=== PATIENT | male | born 2000 | race Two or more races ===

== ENCOUNTER 2021-04-03 15:32 | Emergency (ER) | payer SELFPAY ==
[~2021-04-03] VITALS: Ht 177.8 cm; Wt 75.0 kg
[2021-04-03] MEDS ORDERED: CYCL5TAB PO (16:36)
[2021-04-03] MEDS ORDERED: IBUP-1007 PO (16:36)
--- NOTE | 2021-04-03 16:43 | PHYS DOC ---
General Adult EDM: Chief Complaint: EARACHE/EAR PAIN HPI: HPI: Patient is a 21 year old male who presents with bilateral TMJ return he opens and closes his mouth. He states it is painful when he opens and closes his mouth and he feels a popping. He states is been going on for 3 months. He denies grinding his teeth, eating on ice, frequently chewing gum, dental pain, fever, throat pain, ear pain, loss of hearing, nausea, vomiting, abdominal pain, chest pain, shortness of breath, cough. An conference interpreter is used as he is [place]ian-speaking. Rates his pain around a 5 out of 10. Review of Systems: Review of Systems: Constitutional: Denies fever or chills. [] Eyes: Denies change in visual acuity. [] HENT: Denies nasal congestion or sore throat. + Bilateral TMJ. [] Respiratory: Denies cough or shortness of breath. [] Cardiovascular: Denies chest pain or edema. [] GI: Denies abdominal pain, nausea, vomiting, bloody stools or diarrhea. [] : Denies dysuria. [] Musculoskeletal: Denies back pain or joint pain. [] Integument: Denies rash. [] Neurologic: Denies headache, focal weakness or sensory changes. [] Endocrine: Denies polyuria or polydipsia. [] Lymphatic: Denies swollen glands. [] Psychiatric: Denies depression or anxiety. [] Heart Score: C/O Chest Pain: No Physical Exam: PE: Constitutional: Well developed, well nourished, no acute distress, non-toxic appearance. [] HENT: Normocephalic, atraumatic, bilateral external ears normal, oropharynx moist, no oral exudates, nose normal. Popping bilaterally at the TMJ. No tenderness with palpation. Patient can open his mouth. [] Eyes: PERRLA, EOMI, conjunctiva normal, no discharge. [] Neck: Normal range of motion, no tenderness, supple, no stridor. [] Cardiovascular:Heart rate regular rhythm, no murmur [] Lungs & Thorax: Bilateral breath sounds clear to auscultation [] Abdomen: Bowel sounds normal, soft, no tenderness, no masses, no pulsatile masses. [] Skin: Warm, dry, no erythema, no rash. [] Back: No tenderness, no CVA tenderness. [] Extremities: No tenderness, no cyanosis, no clubbing, ROM intact, no edema. [] Neurologic: Alert and oriented X 3, normal motor function, normal sensory function, no focal deficits noted. [] Psychologic: Affect normal, judgement normal, mood normal. [] EKG: EKG: [] Radiology/Procedures: Radiology/Procedures: [] Course & Med Decision Making: Course & Med Decision Making Pertinent Labs and Imaging studies reviewed. (See chart for details) See HPI. Speaks full clear sentences. Ambulatory with steady gait. Skin pink warm and dry. No tenderness at the TMJ but it feels as though they pop out when he opens his mouth bilaterally. He states he is able to eat and drink appropriately. Throat is pink without exudates or swelling. Bilateral tympanic's are white. Afebrile. Patiently placed on ibuprofen, muscle relaxer. [] Dragon Disclaimer: Dragon Disclaimer: This electronic medical record was generated, in whole or in part, using a voice recognition dictation system. Departure Departure Impression: Primary Impression: TMJ (temporomandibular joint disorder) Disposition: HOME / SELF CARE / HOMELESS Condition: STABLE Patient Instructions: Temporomandibular Joint Pain-Brief, Temporomandibular Problems Additional Instructions: Follow-up with an oral maxillofacial surgeon for further care. Take ibuprofen for your pain. You can try using a heating pad to the area. You can try massaging the area. Take medication as prescribed and with food. Do not drink alcohol or drive on muscle relaxers as they will make you sleepy. You can follow-up with an oral and maxillofacial of your choosing or you can go to [facility] at [address] [id number] and their phone number is [phone]. Scripts Ibuprofen (IBUPROFEN) 600 Mg Tablet 600 MG PO PRN Q6HRS PRN for INFLAMMATION, #25 TAB Prov: MAMTA LYNN [employer] 04/03/21 Cyclobenzaprine Hcl (CYCLOBENZAPRINE HCL) 5 Mg Tablet 1 TAB PO TID, #30 TAB Prov: MAMTA LYNN [employer] 04/03/21 MAMTA LYNN [employer] Apr 03, 2021 16:43
[2021-04-03 16:49] VITALS: BP 125/70
== END 2021-04-03 17:14 | disposition home or self-care (01) ==
LOC: ER 15:32
DX: M26.603 Bilateral temporomandibular joint disorder, unspecified (principal)
CPT/HCPCS: 99283